=== PATIENT | female | born 1985 | race Caucasian/White ===

== ENCOUNTER 2016-09-27 14:15 | Emergency (ER) | payer SELFPAY ==
[2016-09-27 14:59] VITALS: BMI 29.8
--- NOTE | 2016-09-27 15:05 | OBHP ---
Datetime: 09/27/2016 14:55 IP Adm Impression: Term, intrauterine Admit Comment, IP Provider: at 37+weeks came with c/o decreased fm x 1week,no ctxs,vb, lof. obhx 1 x pmh hypothroidism med synthroid all nkda psh den soch den ve /-3 a/p at 37weeks dec fm ob sono cont rico and efm cont close observatiom Pelvic Type - PN: Adequate Extremities - PN: Normal Abdomen - PN: Normal Back - PN: Normal Breast - PN: Normal Lungs - PN: Normal Heart - PN: Normal Thyroid - PN: Normal Neurologic - PN: Normal HEENT - PN: Normal General - PN: Normal FHR - Baseline A Provider: 130 Contraction Comments Provider: occ Comments, ACOG Physical Exam: gravid,non tender ext no edema,no calf ten EGA AdmitDate IP: 37.1 Vital Signs Provider: Reviewed; Within Normal Limits IP Chief Complaint: Decreased movement NICHD Variability Prov Fetus A: Moderate 6-25bpm NICHD Accel Fetus A IP Provider: [id number] FHR Category Provider Fetus A: Category I Dilatation, Provider: 1 Effacement, Provider: 50 Station, Provider: -3 Genitourinary Exam: Normal DTRs - PN: Normal
--- NOTE | 2016-09-27 16:47 | US ---
OB limited/biophysical profile ultrasound Indication: Decreased movement Technique: Grayscale, color flow, and M-mode sonographic images of the single live intrauterine were obtained. Comparison: None available. Findings: There is a single live intrauterine gestation. The fetus is in cephalic position. The placenta is fundal. There is no evidence of previa. The GAVIN measures 10.0 cm . M-mode imaging demonstrates a heart rate to be 114.6 beats per min. Cervix length measures approximately 3.7 cm. Fetus has a composite sonographic age of 37 weeks 2 days. This calculation is based on the biparietal diameter, head circumference, abdominal circumference, and femur length. movements 2/2 breathing 2/2 tone 2/2 Amniotic fluid 2/2 Total score impression: 8/8 Impression: Biophysical profile of 8 out of 8. Single live intrauterine in cephalic position with a heart rate of 114.6 beats per min.
--- NOTE | 2016-09-27 16:52 | OBHP ---
Datetime: 09/27/2016 16:50 Admit Comment, IP Provider: ob sono bpp 8/8 nst ctg 1 reactive dc home labor ins given po hyra f/u Dr Carrillo on oct 04 FHR - Baseline A Provider: 120 NICHD Variability Prov Fetus A: Moderate 6-25bpm NICHD Accel Fetus A IP Provider: [id number] FHR Category Provider Fetus A: Category I Datetime: 09/27/2016 14:55 EGA AdmitDate IP: 37.1
--- NOTE | 2016-09-27 16:55 | OBDCSUM ---
Datetime: 09/27/2016 16:51 Discharged to, Provider: Home Follow up at, Provider: oct 04 Follow up in weeks, Provider: dr stockton Discharge Comment, Provider: dc home labor ins given po hyra f/u Dr Stockton on oct 04 Discharge Diagnosis Prov Other: 37 week dec fm nst
[2016-09-27 21:25] VITALS: BP 106/52; PULSE 80; RESP 18; O2SAT 96
== END 2016-09-27 17:09 | disposition home or self-care (01) ==
LOC: C.EROB 14:15
DX: O36.8130 Decreased fetal movements, third trimester, not applicable or unspecified (principal); Z3A.37 37 weeks gestation of pregnancy

== ENCOUNTER 2016-10-07 15:57 | Inpatient (IN) | payer SELFPAY ==
[2016-09-29 10:08] VITALS: BMI 29.8
[2016-10-07] MEDS ORDERED: Penicillin G 5 Million Unit Vial IVPB ONE (16:24)
[2016-10-07] MEDS ORDERED: Lactated Ringer's 1,000 ML IV SCH (16:30)
--- NOTE | 2016-10-07 16:32 | OBADHP ---
Datetime: 10/07/2016 16:11 Admit Comment, IP Provider: 31 y/o @ 38.4 wks GA c/o LOF at 12pm, clear. pt dneies any ctx, VB, +FM ANte: late transfer OB: FT x 1 daughter with cranioystmosi, LOOM BLOWER: deies hx of fibroids, abnormla pap, ovairn cyst, ST PMY: denies PSH: denies FHX :non cotnbutir; SHX: negative etoh/tobacco/drugs MEDS: PNV A/P @ 38.4 wks GA with PROM , GBS positive -admit to L+D -npo, ivf -admission labo -cont toco and efm -penicillin g gbs prohylxiaxi -pitocin for augmentin -anestheis contult prn : epdiural/pain mangmnt -npo, ivf Pelvic Type - PN: Adequate Extremities - PN: Normal Abdomen - PN: Normal Back - PN: Normal Breast - PN: Not Done Lungs - PN: Normal Heart - PN: Normal Thyroid - PN: Normal Neurologic - PN: Normal HEENT - PN: Normal General - PN: Normal Weight - Estimated: 3400 Presentation-Admit: Vertex FHR - Baseline A Provider: 130 Amniotic Fluid Color, Provider: Clear Membranes, Provider: Ruptured Contraction Comments Provider: irregualr Comments, ACOG Physical Exam: positive amnisure Gestation - Est Wks by US: 38.4 IP Hx Assessment: The History has been Reviewed and is Current IP Chief Complaint: Suspected ruptured membranes NICHD Variability Prov Fetus A: Moderate 6-25bpm FHR Category Provider Fetus A: Category I NICHD Decel Fetus A IP Provider: None Dilatation, Provider: 4 Effacement, Provider: 60 Station, Provider: -2 Genitourinary Exam: Normal DTRs - PN: Normal EGA AdmitDate IP: 38.4 IP Adm Impression: Term, intrauterine IP Admit Plan: Admit to unit Datetime: 09/27/2016 16:50 Vital Signs Provider: Reviewed; Within Normal Limits NICHD Accel Fetus A IP Provider: [id number]
[2016-10-07 17:00] LABS: BASO % 0.1 % (0.0-2.0); EOS # 0.1 K/uL (0.0-0.7); EOS % 0.6 % (0.0-4.0); HEMATOCRIT 34.6 % (34.0-47.0); LYMPH # 1.7 K/uL (1.0-4.3); LYMPH % 13.5 % (20.0-40.0); MEAN CELL VOLUME 87.4 fL (81.0-99.0); MEAN CORPUSCULAR HEMOGLOBIN 29.5 pg (27.0-31.0); MEAN CORPUSCULAR HGB CONC 33.8 g/dL (33.0-37.0); MEAN PLATELET VOLUME 8.4 fL (7.2-11.7); MONO # 0.6 K/uL (0.0-0.8); MONO % 4.8 % (0.0-10.0); NRBC % 0.1 % (0.0-2.0); RED CELL DISTRIBUTION WIDTH 13.7 % (11.5-14.5); WHITE BLOOD COUNT 12.4 K/uL (4.8-10.8)
[2016-10-07 17:13] LABS: ALKALINE PHOSPHATASE 126 U/L (38-126); ALT/SGPT 27 U/L (9-52); AST/SGOT 19 U/L (14-36); BILIRUBIN,TOTAL 0.7 mg/dL (0.2-1.3); BLOOD UREA NITROGEN 9 mg/dL (7-17); CALCIUM 8.4 mg/dl (8.6-10.4); CARBON DIOXIDE 20 mmol/L (22-30); CHLORIDE 104 mmol/L (98-107); GFR AFRICAN-AMERICAN > 60; GLUCOSE,RANDOM 86 mg/dL (65-105); POTASSIUM 3.9 mmol/L (3.6-5.2); SODIUM 136 mmol/L (132-148); TOTAL PROTEIN 6.3 g/dL (6.3-8.3)
[2016-10-07 17:18] LABS: RBC URINE 4 /hpf (0-3); URINE BACTERIA RARE (<OCC); URINE BILIRUBIN NEGATIVE (NEGATIVE); URINE BLOOD NEGATIVE (NEGATIVE); URINE COLOR Yellow (YELLOW); URINE GLUCOSE (UA) NORMAL (Normal); URINE KETONE NEGATIVE (NEGATIVE); URINE LEUKOCYTE ESTERASE 2+ Leu/uL (Negative); URINE PROTEIN 1+ mg/dL (NEGATIVE); URINE UROBILINOGEN NORMAL mg/dL (0.2-1.0); WBC URINE 34 /hpf (0-5)
[2016-10-07 18:38] LABS: RAPID PLASMA REAGIN NONREACTIVE (NONREACTIVE)
[2016-10-07] MEDS ORDERED: Oxytocin 30 UNIT 30 UNITS/500 ML BAG IV SCH (19:30)
[2016-10-07] MEDS ORDERED: Nalbuphine 20 mg/ml Inj (1 ml) IVP PRN (21:00)
[2016-10-07] MEDS ORDERED: Lidocaine 2% Inj (20ml) ONE (23:01)
[2016-10-07] MEDS ORDERED: Benzocaine/Menthol 20%-0.5% Topical Spray (60 ml) TOP PRN (23:16)
[2016-10-07] MEDS ORDERED: Oxycodone/Acetaminophen 5/325 mg Tab PO PRN (23:16)
--- NOTE | 2016-10-07 23:29 | OBDS ---
DELIVERY PERSONNEL Delivery Doctor: DR Nay DELATORRE Scrub Nurse: N/A Anesthesiologist: N/A Resident: N/A MATERNAL INFORMATION Provider Comments: pt was fully dilated and pushing. atrumatic, spontanous delivery of head in Holly p ositon, no nuchal cord noted. atrumat,c spontnaous delivyer of anterior followed by posteiro shoulder followed by deliveyr of body . both oral and nasal passage of baby bulb suctioned. umbical cord clam ped and cut. Cord blood and cord gases collected adn sent x 2. Spontaneous deliveyr of intact placent a with membrnes. fundus firm. second degree perineal laceration noted and repaired iwth 2-0 chromic a fter administration of local anesthetic of lidocaine. good hemostasis, no ocmplications. live female apgars 9,9 weight of 6lb 8 ounces ebl 400ml civil engineer present for delivery LABOR SUMMARY EDC: 10/17/2016 00:00 No. Babies in Womb: 1 LABOR INFORMATION Group B Beta Strep: Positive MEMBRANES Membranes Rupture Method: Spontaneous Rupture of Membranes: 10/07/2016 11:00 Length of Rupture (hrs): 11.87 Amniotic Fluid Color: Clear Amniotic Fluid Amount: Small Amniotic Fluid Odor: None STAGES OF LABOR Stage 3 hrs: 0 Stage 3 min: 5 BABY A INFORMATION Infant Delivery Date/Time: 10/07/2016 22:52 Method of Delivery: Vaginal Born in Route : No : N/A Forceps: N/A Vacuum Extraction: N/A Shoulder Dystocia : No SHOULDER DYSTOCIA BABY A Delivery Date/Time: 10/07/2016 22:52 PRESENTATION/POSITION BABY A Presentation: Cephalic Cephalic Presentation: Vertex Breech Presentation: N/A PLACENTA INFORMATION BABY A Placenta Delivery Time : 10/07/2016 22:57 Placenta Method of Delivery: Spontaneous Placenta Status: Delivered SCORES BABY A Heart Rate 1 min: >100 bpm Resp Effort 1 min: Good Cry Reflex Irritability 1 min: Cough or Sneeze or Pulls Away Muscle Tone 1 min: Active Motion Color 1 min: Body Leon, Extremities Blue Resuscitation Effort 1 min: N/A SCORE 1 MIN: 9 Heart Rate 5 min: >100 bpm Resp Effort 5 min: Good Cry Reflex Irritability 5 min: Cough or Sneeze or Pulls Away Muscle Tone 5 min: Active Motion Color 5 min: Body Leon, Extremities Blue Resuscitation Effort 5 min: N/A SCORE 5 MIN: 9 INFORMATION BABY A Gestational Age at Delivery: 38.4 Gestational Status: Term Outcome : Liveborn Infant Condition : Stable Infant Sex: Female IDENTIFICATION/MEDS BABY A ID Band Number: [id number] ID Band Location: Right Leg; Right Arm Sensor Applied: Yes Sensor Number: [id number] Sensor Location : Cord Clamp Vitamin K Given : Not Given Erythromycin Given: Not Given WEIGHT/LENGTH BABY A Birthweight (gms): 2960 Weight (lb): 6 Weight (oz): 8 Infant Length Inches: 18.25 Infant Length cms: 46.4 CORD INFORMATION BABY A No. Cord Vessels: #3 Nuchal Cord : N/A Nuchal Cord Other: n/a Cord Blood Taken: Yes
[2016-10-08 08:33] LABS: HEMATOCRIT 33.2 % (34.0-47.0); MEAN CELL VOLUME 88.8 fL (81.0-99.0); MEAN CORPUSCULAR HEMOGLOBIN 29.4 pg (27.0-31.0); MEAN PLATELET VOLUME 8.7 fL (7.2-11.7); WHITE BLOOD COUNT 16.5 K/uL (4.8-10.8)
--- NOTE | 2016-10-08 11:22 | OBPPN ---
Datetime: 10/08/2016 11:20 PP Pain Prov: Within normal limits PP Nausea Prov: Denies PP Flatus Prov: Yes PP BM Prov: No PP Breasts Prov: Normal PP Heart Prov: Normal PP Lungs Prov: Normal PP Abdomen/Uterus Prov: Normal PP Lochia Prov: Normal PP Vulva/Perineum Prov: Normal PP CVA Tenderness Prov: Normal PP Extremities Prov: Normal PP C/S Incision Prov: Not Applicable PP Progress Prov: Normal PP Impression Prov: Normal progression PP Plan Prov: Continue present management PP Progress Note Prov: Pt seen and examined and reports pain is controlled with medication. Pt repor ts ambuating, voiding, passing flatus, no BM. Pt denies any fever, chills, nausea, vomiting, CP, SOB. lightheadness, dizzyness. Pt is breast and bottle feeding and denies any feelings of sadness or depr ession. VSS PE: GEN: NAD, AAO x 3 BREAST: NT, Non engorged b/l RES: CTAB/l CVS: RRR, +S1/S2 ABD: soft, NT/ND, +BS. No guarding, no reboudn tenderness, no rigidity FUNDUS: Firm, at level of umbiliucs VE: Minimal lochia, non fouls smelling EXT: no calf tenderness, negative valeri's sign A/P s/p PPD#1 doing well -pain managment -diet as tolerated -encourage ambuation with assistance as needed/ encourage breast feeding -cont current managment -anticipate d/ tomy am Vital Signs Provider PP: Reviewed; Within Normal Limits
[2016-10-08] MEDS: Oxycodone/Acetaminophen 5/325 mg Tab PO PRN ×2 (12:37→18:07)
--- NOTE | 2016-10-09 07:24 | OBPPN ---
Datetime: 10/09/2016 07:24 PP Pain Prov: Within normal limits PP Nausea Prov: Denies PP Flatus Prov: Yes PP BM Prov: Yes PP Breasts Prov: Normal PP Heart Prov: Normal PP Lungs Prov: Normal PP Abdomen/Uterus Prov: Normal PP Lochia Prov: Normal PP Vulva/Perineum Prov: Normal PP CVA Tenderness Prov: Normal PP Extremities Prov: Normal PP C/S Incision Prov: Not Applicable PP Progress Prov: Normal PP Impression Prov: Normal progression PP Plan Prov: Continue present management; Discharge PP Progress Note Prov: pt seen and examiend and denies any pain. pt denies an yvaignal bleeding, cp, sob. pt is breat feeding. VSS GEN: NAD, AAO x 3 RESP: Ctab/l CVS: RRR, +S1/S2 BREAST :Nt, non engoarged b/l ABD: soft, NT/ND, no guarding, no reboudn tendnerss, no rigity, +BS FUNDUS: firm, below level ofumbilucus VE: minimal lochia, non fouls smelling EX:T no calf tenderness, negative valeri's sign A/P s/p PPD #2 doing well -f/u am cbc -d/c home -rto 6 weeks Vital Signs Provider PP: Reviewed; Within Normal Limits
--- NOTE | 2016-10-09 07:26 | OBDCSUM ---
Datetime: 10/09/2016 07:24 Discharged to, Provider: Home Follow up at, Provider: Dr Carrillo Disch Instr Activity: Normal activity Disch Instr Diet: Regular Discharge Instructions, Provider: Routine instructions given Discharge Diagnosis, Provider: Term Delivered Discharge Time: 10/09/2016 07:24 Follow up in weeks, Provider: 6 weeks Disch Referrals: None Contraception discussed, Prov: Yes Disch Activity Restrictions: No sexual activity; Nothing in vagina - [place], tampons, douche Discharge Comment, Provider: percaution given Contraception after Delivery: Not Planning to Use
[2016-10-09 08:11] LABS: BASO % 0.3 % (0.0-2.0); EOS # 0.2 K/uL (0.0-0.7); EOS % 1.7 % (0.0-4.0); HEMATOCRIT 31.7 % (34.0-47.0); LYMPH # 2.1 K/uL (1.0-4.3); LYMPH % 17.9 % (20.0-40.0); MEAN CELL VOLUME 88.3 fL (81.0-99.0); MEAN CORPUSCULAR HEMOGLOBIN 29.2 pg (27.0-31.0); MEAN CORPUSCULAR HGB CONC 33.1 g/dL (33.0-37.0); MEAN PLATELET VOLUME 8.4 fL (7.2-11.7); MONO # 0.7 K/uL (0.0-0.8); MONO % 5.9 % (0.0-10.0)
[2016-10-09] MEDS: Oxycodone/Acetaminophen 5/325 mg Tab PO PRN (08:39)
[2016-10-09 08:40] VITALS: PULSE 70; RESP 18; TEMP 97.3
[2016-10-12 14:09] VITALS: BP 112/75; O2SAT 100
== END 2016-10-09 14:55 | disposition home or self-care (01) | DRG 775 ==
LOC: C.EROB 15:57 → C.4D 16:24 → C.4M 10-08 01:30
PROVIDERS: ADMIT Obstetrics & Gynecology; ATTEND Obstetrics & Gynecology
PROC: 10E0XZZ Delivery of Products of Conception, External Approach (ICD-10-PCS; principal; 2016-10-07)
PROC: 0KQM0ZZ Repair Perineum Muscle, Open Approach (ICD-10-PCS; 2016-10-07)
DX: O42.02 Full-term premature rupture of membranes, onset of labor within 24 hours of rupture (principal); O99.824 Streptococcus B carrier state complicating childbirth; Z37.0 Single live birth; Z3A.38 38 weeks gestation of pregnancy